=== PATIENT | male | born 1985 | race African-American/Black ===

== ENCOUNTER → 2020-08-15 08:34 | Outpatient (BNVA) | payer SELFPAY | PROVIDERS: Visit Provider Internal Medicine ==

== ENCOUNTER 2025-01-03 13:56 | Outpatient (AMB) | payer OTHER, SELFPAY ==
--- NOTE | 2025-01-03 13:59 | MHC.OFFVIS ---
Intake Visit Reasons: vasectomy consult Intake Note: Patient is present for VASECTOMY CONSULT Urology Medication:NONE Antibiotic Allergy:NONE Blood Thinner:NONE Otolaryngology Rep Required: No Allergies No Known Allergies (No Known Allergies*) Allergy (Verified 01/03/25 14:01) Medication List - Last Reconciled 01/03/25 by LAURA Lorenzana blood-glucose sensor (Dexcom G7 Sensor device) As directed diazepam (Valium) 2 mg PO DAILY olmesartan 20 mg PO DAILY rosuvastatin 10 mg PO DAILY tirzepatide (Mounjaro) 2.5 mg subcut QWEEK tramadol 50 mg PO Q8H PRN 3 days HPI Comments Details: Haim is a 39 year old male patient of Dr. Maxwell. He presents to the office today for - vasectomy evaluation Vasectomy evaluation The patient presents for vasectomy consultation.? He is currently single however in a stable relationship He has fathered 2 children, with 2 partners The youngest child is 3 years old His partner is aware and permissive for a vasectomy Current form of control is hormones Current employment is patient elderly caregiver The vasectomy may be complicated due to a history of no complicating issues. Patient education has been provided via AUA video, via printed information, risks of failure, recovery time, bruising and potential pain syndrome have been stressed Discussion today focused on the presence of vasectomy and the risks, benefits and alternatives that are available. Vasectomy as intended as a permanent form of control. Printed information and literature was provided to the patient. Overall there is a one in 2500 failure rate. This can occur at any time after vasectomy. Risks were discussed highlighting hematoma, spermatocele, epididymal congestion, development of sperm antibodies, and development of chronic pain estimated between 1-5%. The procedure was reviewed in detail. Anatomical diagrams of the male genitalia were used to explain the location of the vas deferens. The vas deferens will be transected, the proximal end will be cauterized, a metal clip would be applied to separate the 2 vas deferens ends. It was explained the procedure will be done in the office and takes approximately 10-15 minutes. Less common problems that arise with vasectomy include hematoma, bleeding, allergic reaction to anesthetic, epididymal infection, epididymal congestion, scrotal discomfort, spermatic leak, spermatic granuloma and the possibility of antisperm antibodies. He understands these risks and wishes to proceed. Consent was signed at the office today. He also understands that it takes 12 weeks for sperm to fully clear the system. He will need to provide a semen sample at 12 weeks and if this is not clear a 2nd sample at 16 weeks. Medical clearance to stop using protection will only be provided if he satisfies published criteria for sperm clearance. Review of Systems Const All systems reviewed & are unremarkable except as noted in HPI and below Physical Exam Const General: cooperative, comfortable, no acute distress, well developed, alert and awake Orientation/consciousness: patient oriented x3 HEENT Head: Yes normal to inspection, Yes normocephalic and Yes atraumatic Ears: hearing grossly normal bilaterally Eyes General: appearance normal, both eyes and all related structures Neck Neck: Yes normal visual inspection and Yes trachea midline Chest Chest palpation & inspection: normal inspection of the chest Resp Effort & Inspection: normal respiratory effort and able to speak in complete sentences Cardio Rate: regular rate GI Inspection: Yes normal to inspection General: Yes no CVA tenderness Back/Spine/Pelvis Back: no CVA tenderness Skin General skin exam: no rashes or lesions noted Neuro General: patient oriented x3 Extrem General: Yes normal to inspection Psych Appearance: grossly normal and well kempt Mental Status: mental status grossly normal Speech and movement: Normal speech and movement present and Clear speech present Affect: normal affect Attitude: cooperative Thought process: Normal thought process present Thought content: Normal thought content present Insight: Fair insight present (Psych) Judgement: Fair judgement present (Psych) Assessment & Plan Assessment & Plan (1) Vasectomy evaluation: Code(s): Z30.09 - Encounter for other general counseling and advice on contraception Category: Medical (2) Anxiety about health: Code(s): R45.89 - Other symptoms and signs involving emotional state Category: Medical Plan Vasectomy was discussed in detail; risks and benefits. Consent was obtained We discussed semen analysis in office verses fellows kit All questions were answered Prescriptions provided; we discussed importance of bringing medications to office day of procedure. Will schedule for vasectomy Follow-up per doctor's orders; or sooner with any issues, concerns, and or questions. Medications: New tramadol Bringing medication to office day of procedure 50 mg PO Q8H PRN 9 tabs 0RF pain 3 days N43.3 - Hydrocele, unspecified diazepam (Valium) Bringing medication to office day of procedure 2 mg PO DAILY 2 tabs 0RF anxiety R45.89 - Other symptoms and signs involving emotional state Patient Instructions: The patient had an opportunity to ask questions regarding the treatment plan. All questions were answered. Physical exam, labs, and imaging were discussed and reviewed in detail. As well as risks, benefits, and discussion of treatment choices. No major barriers to understanding were identified. The patient expressed understanding and agreement with the above treatment plan. The patient was made aware they should contact our office by phone for worsening of their current condition, the appearance of new symptoms, or with any questions or concerns. Compliance is encouraged with any medications and follow up testing that is ordered. It is a privilege to be allowed the opportunity to participate in? your urological care.? Again, if you have any questions or concerns If you have any questions or concerns please do not hesitate to contact me. The office is [phone]. This note is constructed using voice recognition software. While every effort has been made to ensure accuracy transcription typist errors may have been included. Yours sincerely, LAURA Lorenzana Coding Level of Care Code New Pt Level 4 (59450) Diagnoses Vasectomy evaluation Z30.09 Anxiety about health R45.89
--- OUTSIDE RECORDS SUMMARY | 2025-01-03 15:44 | XMS_ITS | Clinical Summary ---
Author Organization [facility] Address [address] [id number] Care Team Providers Care Clinical Data Management Director Name Role Phone Sean Juares MD Primary Care Provider Unavailab le Allergies No known active allergies Medications Medication Sig Dispensed Refills Start Date End Date Status Continuous Blood Gluc Potato Loader (FreeStyle Christopher 14 Day [place]) KEVIN 1 Device by Does not apply route every 14 (fourteen) days. 2 each 2 04/01/2023 Active Continuous Blood Gluc Sensor (FreeStyle Christopher 2 Sensor) MISC 1 Device by Does not apply route every 14 (fourteen) days. 6 each 3 04/04/2023 Active Continuous Glucose Potato Loader (FreeStyle Christopher 3 [place]) DEVIIndications:Inadequ ately controlled diabetes mellitus (HCC) 1 Device by Does not apply route every 14 (fourteen) days. 6 each 1 10/08/2023 Active Insulin Pen Needle (Pen [place]) 32G X 6 MM MISC 1 Pen Needle by Does not apply route once a week. 30 each 0 11/24/2023 Active EC-Naproxen 500 MG EC tablet TAKE 1 TABLET BY MOUTH TWO TIMES A DAY FOR 14 DAYS 0 11/09/2023 Active rosuvastatin (CRESTOR) tablet 10 mgIndications:Pre-diabe jonathan,Hypertension, unspecified type,Family history of hyperlipidemia Take 1 tablet (10 mg total) by mouth daily. 90 tablet 0 11/26/2023 Active Continuous Glucose Sensor (FreeStyle Christopher 3 Sensor) MISCIndications:Type 2 diabetes mellitus with hyperglycemia, without long-term current use of insulin (HCC) 1 Device by Does not apply route every 14 (fourteen) days. 6 each 5 12/23/2023 Active Semaglutide, 1 MG/DOSE, 4 MG/3ML SOPN Inject 0.75 mL (1 mg total) under the skin once a week. 3 mL 1 02/05/2024 Active olmesartan-hydrochlorot hiazide (BENICAR HCT) 40-12.5 MG per tablet Take 1 tablet by mouth daily. 30 tablet 1 02/05/2024 Active Active Problems Problem Noted Date Diagnosed Date Mild intermittent asthma 10/10/2021 Class 1 obesity 10/10/2021 Type 2 diabetes mellitus without complication Primary hypertension 06/26/2021 Pre-diabetes 06/26/2021 Mixed hyperlipidemia 06/26/2021 Immunizations Name Administration Dates Next Due Covid-19 (Moderna 12+) 100mc g/0.5mL dosage 03/22/2021,02/22/2021 DTaP 09/14/1997, 8,1986,09/03,1986 HIB, Unspecified formulation 04/06/1988 Hepatitis B, Unspecified formulation 09/06/1999, 08/01/1998,06/29/1998 IPV 04/06/1988, 7,1986,07/04 Influenza Quad (Fluarix/Fluzone/FluLaval) 0.5mL (SD-IIV4) 04/01/2023 Influenza Quad (Flumist) 0.2 mL 2-49 Yrs (LAIV4) 04/03/2009 Influenza Trivalent (Fluarix/FluLaval/Afluria/Fluzone) 0.5mL (6mon &>) 02/05/2024 Influenza Trivalent (Fluzone /Afluria) 5.0mL Multi-dose Vial 02/07/2014 MMR 01/07/1996,04/06/1988 Pneumococcal Polysaccharide PPSV23 05/26/2001 Td (Adult), Unspecified formulation 04/06/2005,0 11/05/1992 Tdap 08/17/2015 Varicella 08/05/2018,04/03/2009 Family History Medical History Relation Name Comments No Sig Med Hx Daughter Cherie Diabetes Father Hyperlipidemia Father Hypertension Father Spondylolisthesis Father Stroke Father No Sig Med Hx Maternal Grandfather Kidney disease Maternal Grandmother No Sig Med Hx Mother No Sig Med Hx Paternal Grandfather Diabetes Paternal Grandmother Hypertension Paternal Grandmother Mental illness Sister 1 Stephanie Mental illness Sister 2 Justice Mental illness Sister 3 Carla No Sig Med Hx Son Yaw Relation Name Status Comments Daughter Cherie Alive Father Alive Maternal Grandfather Alive Maternal Grandmother Mother Alive Paternal Grandfather Alive Paternal Grandmother Alive Sister 1 Stephanie Alive Sister 2 Justice Alive Sister 3 Carla Alive Son Yaw Alive Social History Tobacco Use Types Packs/Day Years Used Date Smoking Tobacco: Never Smokeless Tobacco: Never Tobacco Cessation:Counseling Given: Not Answered Alcohol Use Standard Drinks/Week Comments Yes 0 (1 standard drink = 0.6 oz pur e alcohol) social Sex and Gender Information Value Date Recorded Sex Assigned at Male 06/06/2021 9:12 AM EST Gender Identity Male 06/06/2021 9:12 AM EST Sexual Orientation Not on file Job Start Date Occupation Industry Not on file Not on file Not on file Last Filed Vital Signs Vital Sign Reading Time Taken Comments Blood Pressure 148/98 02/05/2024 1:50 PM EDT Pulse 96 02/05/2024 1:16 PM EDT Temperature 36.5 C (97.7 F) 04/01/2023 11:41 AM EST Respiratory Rate 18 09/12/2021 9:43 AM EDT Oxygen Saturation 97% 02/05/2024 1:16 PM EDT Inhaled Oxygen Concentration - - Weight 119.7 kg (264 lb) 02/05/2024 1:16 PM EDT Height 188 cm (6' 2 ) 02/05/2024 1:16 PM EDT Body Mass Index 33.9 02/05/2024 1:16 PM EDT Plan of Treatment Health Maintenance Due Date Last Done Comments Pneumococcal Vaccine (2 of 2 - PCV) 05/26/2002 05/26/2001 Depression Screening 06/06/2022 06/06/2021 Preventative Health Evaluation 06/12/2022 06/12/2021, 06/12/2021 Hemoglobin A1C Due 08/04/2024 02/05/2024, 0 11/25/2023, 10/08/2023, Additional history exists Diabetes: Foot Exam 11/19/2024 11/20/2023 Diabetes: Microalbumin Test 11/24/2024 11/25/2023, 03/26/2023 COVID-19 Vaccine ( season) 2024 03/22/2021, 02/22/2021 Influenza Vaccine (#1) 2024 , 04/01/2023, 02/07/2014, Additional history exists BMI Counseling 02/04/2025 02/05/2024, 12/06, 11/26/2023, Additional history exists Diabetes: Eye Exam (No Retinopathy) 03/06/2025 03/06/2023 (Pt Reported - Need documentation) DTap / Tdap / Td (8 - Td or Tdap) 08/16/2025 08/17/2015, 04/06/2005, 09/14/1997, Additional history exists Hepatitis B Vaccines Completed 09/06/1999, 08/01/1998, 06/29/1998 Hepatitis C Screening Discontinued RSV Ped < 20 months Aged Out No longe r eligible based on patient's age to complete this topic Care Teams Clinical Data Management Director Relationship Specialty Start Date End Date Sean Juares MD PCP - General Family Medicine 10/08/23
--- OUTSIDE RECORDS SUMMARY | 2025-01-03 15:44 | XMS_ITS | Clinical Summary ---
Author Organization [facility] Address [address] [place] [address] Care Team Providers Care Fuller Brush Worker Name Role Phone Pcp, No Primary Care Provider Unavailabl e Social History Tobacco Use Types Packs/Day Years Used Date Smoking Tobacco: Never Assessed Sex and Gender Information Value Date Recorded Sex Assigned at Not on file Legal Sex Male 2:33 PM EST Gender Identity Not on file Sexual Orientation Not on file Plan of Treatment Health Maintenance Due Date Last Done Comments Hepatitis C Virus Screening 1986 HIV Screening 1999 DTaP/Tdap/Td Vaccines (1 - Tdap) 2005 Hepatitis B Vaccines (1 of 3 - 19+ 3-dose series) 2005 COVID-19 Vaccine ( - 2023-2 5 season) 2024 HPV Vaccines (No Doses Required) Completed Pneumococcal Vaccine: Pediat lesly (0-5 Years) and At-Risk Patients (6 to 49 Years) Aged Out No longer eligible b ased on patient's age to complete this topic Care Teams Fuller Brush Worker Relationship Specialty Start Date End Date Pcp, No [address] [place] [address] PCP - General 05/26/20
--- OUTSIDE RECORDS SUMMARY | 2025-01-03 15:44 | XMS_ITS | Clinical Summary ---
Author Organization [facility] Medici ne Address [address] [place] [address] Phone Care Team Providers Care Clay Artist Name Role Phone Vicky Maxwell Primary Care Provider [phone] Allergies No known active allergies Medications pen needle, diabetic (PEN NEEDLE MISC) Insulin Pen Needle (Pen Mora) 32G X 6 MM MISC- 1 Pen Needle by Does not apply route once a week. 024 Active blood-glucose sensor (FreeStyle Christopher 3 Plus Sensor) deviceIndicati ons:Type 2 diabetes mellitus with other specified complication, unspecified whether superintendent container terminal insulin use (CMS/[facility] V24, CMS/[facility] V28) 1 EA every 14 (fourteen) days. Box = Kit = EA 1 kit 3 025 Active olmesartan (BENICAR) 20 mg tabletIndicati ons:Type 2 diabetes mellitus with other specified complication, unspecified whether care home insulin use (CMS/[facility] V24, CMS/HCC V28) Take 1 tablet (20 mg total) by mouth 1 (one) time each day. 30 each 5 025 2025 Active rosuvastatin (CRESTOR) 10 mg tabletIndicati ons:Type 2 diabetes mellitus with other specified complication, unspecified whether care home insulin use (CMS/[facility] V24, CMS/HCC V28) Take 1 tablet (10 mg total) by mouth 1 (one) time each day. 90 tablet 025 Active Mounjaro 2.5 mg/0.5 mL injectionIndic ations:Type 2 diabetes mellitus without complication, without long-term current use of insulin ([facility] V24, [facility] V28) INJECT 2.5 MG SUBCUTANEOUSLY EVERY WEEK DIRECTED. ROTATE INJECTION SITES IN THE ABDOMEN, THIGH OR UPPER ARM 2 mL 025 Active tirzepatide (MOUNJARO) 5 mg/0.5 mL injectionIndic ations:Type 2 diabetes mellitus with other specified complication, unspecified whether care home insulin use ([facility] V24, [facility] V28) Inject 0.5 mL (5 mg total) under the skin every 7 (seven) days. 2 mL 025 Active tirzepatide (MOUNJARO) 7.5 mg/0.5 mL injectionIndic ations:Type 2 diabetes mellitus with other specified complication, unspecified whether superintendent container terminal insulin use ([facility] V24, [facility] V28) Inject 0.5 mL (7.5 mg total) under the skin every 7 (seven) days. 2 mL 025 Active tirzepatide (MOUNJARO) 10 mg/0.5 mL injectionIndic ations:Type 2 diabetes mellitus with other specified complication, unspecified whether care home insulin use ([facility] V24, [facility] V28) Inject 0.5 mL (10 mg total) under the skin every 7 (seven) days. 2 mL 025 Active blood-glucose sensor (Dexcom G7 Sensor) deviceIndicati ons:Type 2 diabetes mellitus with other specified complication, unspecified whether care home insulin use ([facility] V24, [facility] V28) 1 EA continuously. Box = Kit = EA, apply to arm every 10 days 3 each 1 025 Active blood-glucose sensor (Dexcom G7 Sensor) device 2 each every 14 (fourteen) days. Box = Kit = EA 1 kit 2 025 2024 Discontinued Active Problems Problem Noted Date Diagnosed Date Elevated serum creatinine 09/08/2024 Class 1 obesity 10/10/2021 Mild intermittent asthma 10/10/2021 Type 2 diabetes mellitus without complication Mixed hyperlipidemia 06/26/2021 Pre-diabetes 06/26/2021 Primary hypertension 06/26/2021 Encounters Date Type Department Care Team Description 12/15/2024 1:45 PM EDT Office Visit Family [facility] [place] [address] [facility] [address] [place] [phone] Vicky Maxwell PA Type 2 diabetes mellitus with other specified complication, unspecified whether superintendent container terminal insulin use ([facility] V24, [facility] V28) (Primary Dx); Attention deficit; Overeating disorder 10/13/2024 2:00 PM EDT Office Visit Family [facility] [place] [address] [facility] [address] [place] [address] Vicky Maxwell PA Type 2 diabetes mellitus with other specified complication, unspecified whether superintendent container terminal insulin use ([facility] V24, [facility] V28) (Primary Dx); Encounter for male control from Last 3 Months Immunizations Immunization Administration Dates Next Due DTaP (Infanrix) 6wks to less than 7yo ,04/06/1988,1986,09/03,1986 Hep B, Unspecified 09/06/1999,08/01/1998, 999 HiB 04/06/1988 IPV Inactivated polio (Ipol) 6wks and older 04/06/1988,1986,1986,07/04 Influenza Quadrivalent, 0.5m l, preservative free (Fluarix; FluLaval; Fluzone) ages 6mo and older (Afluria) 3yo and older 04/01/2023 Influenza trivalent, 0.5mL, preservative free (Fluarix; FluLaval; Fluzone) ages 6mo and older (Afluria) 3 years and older 02/05/2024 Influenza trivalent, with pr eservative (Fluzone; Afluria) 6mo and older 02/05/2024,02/07/2014 Influenza, live, intranasal, quadrivalent (FluMist) 2yo to less than 50yo 04/03/2009 MMR, measles mumps and rubel la Live (Priorix; M-M-R II) 12mo and older 01/07/1996,04/06/1988 Moderna SARS-CoV-2 COVID-19, mRNA, LNP-S, preservative free 03/22/2021,02/22/2021 Novel [id number] 04/03/2009 Pneumococcal polysaccharide 23 valent (Pneumovax 23) 2yo and older 05/26/2001 Td, Unspecified 04/06/2005,11/05/1992 Tdap Tetanus diptheria acell ular pertussis (Boostrix; Adacel) 7yo and older 08/17/2015 Varicella live (Varivax) 12m o and older 08/05/2018,04/03/2009 Medical History Medical History Date Comments Asthma DX:Asthma Hypertension DX:Hypertension Diabetes mellitus (CMS/[facility] V24, CMS/[facility] V28) DX:Diabetes mellitus ([facility]) Family History Medical History Relation Name Comments No Known Problems Daughter Cherie Diabetes Father Hyperlipidemia Father Hypertension Father Spondylolisthesis Father Stroke Father No Known Problems Maternal Grandfather Kidney disease Maternal Grandmother No Known Problems Mother No Known Problems Paternal Grandfather Diabetes Paternal Grandmother Hypertension Paternal Grandmother Mental illness Sister 1 Stephnaie Mental illness Sister 2 Justice Mental illness Sister 3 Carla No Known Problems Son Yaw Relation Name Status Comments Daughter Cherie Alive Father Alive Maternal Grandfather Alive Maternal Grandmother Mother Alive Paternal Grandfather Alive Paternal Grandmother Alive Sister 1 Stephanie Alive Sister 2 Justice Alive Sister 3 Carla Alive Son Yaw Alive Social History Tobacco Use Types Packs/Day Years Used Date Smoking Tobacco: Never Smokeless Tobacco: Never Alcohol Use Standard Drinks/Week Comments Yes 0 (1 standard drink = 0.6 oz pur e alcohol) Sex and Gender Information Value Date Recorded Sex Assigned at Male 02/19/2024 1:26 PM EST Legal Sex Male 2:49 PM EST Gender Identity Male 02/19/2024 1:26 PM EST Sexual Orientation Straight 02/19/2024 1: 26 PM EST Obstetrics History Last Filed Vital Signs Vital Sign Reading Time Taken Comments Blood Pressure 140/82 12/15/2024 1:41 PM EDT Pulse 97 12/15/2024 1:36 PM EDT Temperature 36.9 C (98.4 F) 12/15/2024 1:36 PM EDT Respiratory Rate 18 06/11/2024 9:45 AM EST Oxygen Saturation 97% 12/15/2024 1:36 PM EDT Inhaled Oxygen Concentration - - Weight 121 kg (267 lb) 12/15/2024 1:36 PM EDT Height 188 cm (6' 2 ) 12/15/2024 1:36 PM EDT Body Mass Index 34.28 12/15/2024 1:36 PM EDT Plan of Treatment Upcoming Encounters Date Type Department Care Team (Late st Contact Info) Description 03/16/2025 10:30 AM EST Office Visit Family Medicine [place] [address] [facility] [address] [place], [place] [phone] Vicky Maxwell PA [address] [facility] [address] [facility] [place], [place] [id number] Health Maintenance Due Date Last Done Comments Pneumococcal Vaccine: Pediatrics (0 to 5 Years) and At-Risk Patients (6 to 49 Years) (2 of 2 - PCV) 05/26/2002 05/26/2001 Hepatitis C Screening 03/06/2022 Social Influencers of Health Screening 03/06/2022 Diabetes: Annual Retina Eye Exam 03/06/2024 03/06/2023 Depression Screening 04/07/2024 Diabetes: Annual Foot Exam 11/19/2024 11/20/2023 Diabetes: Annual Urine Albumin-Creatinine Ratio (uACR) 11/24/2024 11/25/2023, 11/25/2023 COVID-19 Vaccine ( season) 2024 03/22/2021, 02/22/2021 Influenza Vaccine (#1) 2024 , 02/05/2024, 04/01/2023, Additional history exists Diabetes: Blood Sugar Control Test (HGBA1C) 06/14/2025 12/15/2024, 09/08/2024, 06/10/2024, Additional history exists DTaP,Tdap,and Td Vaccines (9 - Td or Tdap) 08/16/2025 08/17/2015, 04/06/2005, 09/14/1997, Additional history exists Diabetes: Annual GFR (Glomerular Filtration Rate) 12/15/2025 12/15/2024, 10/13/2024, 09/08/2024, Additional history exists Hypertension/CHF/CAD Annual BMP Blood Test 12/15/2025 12/15/2024, 10/13/2024, 09/08/2024, Additional history exists Cholesterol Screening (Lipid Panel) 06/10/2029 06/10/2024, 02/05/2024, 02/05/2024, Additional history exists RSV Immunization Adult Patients (1 - 1-dose 75+ series) 2061 HIB Vaccines Completed 04/06/1988 IPV Vaccines Completed 04/06/1988, 11/07, 1986, Additional history exists MMR Vaccines Completed 01/07/1996, 04/06/1988 Hepatitis B Vaccines Completed 09/06/1999, 08/01/1998, 06/29/1998 Varicella Vaccines Aged Out 08/05/2018, 04/03/2009 No longer eligible based on patient's age to complete this topic HIV Screening Completed 11/25/2023 HPV Vaccines Aged Out No longer eligi ble based on patient's age to complete this topic Hepatitis A Vaccines Aged Out No long er eligible based on patient's age to complete this topic Meningococcal ACWY Vaccine Aged Out N o longer eligible based on patient's age to complete this topic Meningococcal B Vaccine Aged Out No l onger eligible based on patient's age to complete this topic RSV Immunization Patients Under 20 months Aged Out No longer eligible based on patient's age to complete this topic Procedures Procedure Name Priority Date/Time Associated Diagnosis Comments POC HEMOGLOBIN A1C Routine 12/15/2024 2: 26 PM EDT Type 2 diabetes mellitus with other specified complication, unspecified whether superintendent container terminal insulin use ([facility] V24, [facility] V28) VITAMIN D 25 HYDROXY Routine 12/15/2024 9:23 AM EDT Diabetes mellitus associated with hormonal etiology ([facility]/HCC V24, CMS/[facility] V28) Hypouricemia Vitamin B12 deficiency anemia Avitaminosis D VITAMIN B12 Routine 12/15/2024 9:23 AM EDT Diabetes mellitus associated with hormonal etiology ([facility] V24, CMS/[facility] V28) Hypouricemia Vitamin B12 deficiency anemia Avitaminosis D COMPREHENSIVE METABOLIC PANEL Routine 12/15/2024 9:23 AM EDT Diabetes mellitus associated with hormonal etiology ([facility] V24, [facility] V28) Hypouricemia Vitamin B12 deficiency anemia Avitaminosis D FRUCTOSAMINE Routine 12/15/2024 9:23 AM EDT Diabetes mellitus associated with hormonal etiology ([facility] V24, [facility] V28) Hypouricemia Vitamin B12 deficiency anemia Avitaminosis D VITAMIN D 25 HYDROXY Routine 10/13/2024 1:37 PM EDT Vitamin D deficiency VITAMIN B12 Routine 10/13/2024 1:37 PM EDT Anemia due to vitamin B12 deficiency, unspecified B12 deficiency type COMPREHENSIVE METABOLIC PANEL Routine 10/13/2024 1:37 PM EDT Elevated serum creatinine FRUCTOSAMINE Routine 10/13/2024 1:37 PM EDT Type 2 diabetes mellitus with other specified complication, unspecified whether superintendent container terminal insulin use ([facility] V24, [facility] V28) LIPID PANEL Routine 06/10/2024 8:19 AM EST Type 2 diabetes mellitus without complication, without long-term current use of insulin ([facility] V24, [facility] V28) HIV SCREENING Routine 11/25/2023 URINE ALBUMIN CREATININE RATIO Routine 11/25/2023 DIABETES FOOT EXAM Routine 11/20/2023 DIABETES EYE EXAM Routine 03/06/2023 from Last 3 Months or Most Recently Relevant to Health Maintenance Results * (ABNORMAL) POC Hemoglobin A1C manually resulted (12/15/2024 2:26 PM EDT) Hemoglobin A1C POC 8.2(A) 4.3 - 5.7 % Blood Capillary blood specimen / Unknown 12/15/2024 2:26 PM EDT us Vicky IRENE POINT OF CARE TEST ENTER/EDIT ORDERABLES Final Result * (ABNORMAL) Fructosamine (12/15/2024 9:23 AM EDT) Only the most recent of2 resultswithin the time period is included. Fructosamine 382(H) 151 - 300 umol /L 12/20/2024 9:48 AM EDT [facility] Comment: Test performed at [facility], [address] , [place] [address] Makenzie Castrejon MD, PhD - Hospice Social Worker Blood Venous blood specimen / Unknown Venipuncture / Unknown 12/15/2024 9:23 AM EDT 12/15/2024 9:23 AM EDT Vicky IRENE LAB BLOOD ORDERABLES Final Res ult Performing Organization Address City/[facility]/ZIP Co de Phone Number [facility] [address] [place] [address] * (ABNORMAL) Vitamin D 25 hydroxy (12/15/2024 9:23 AM EDT) Only the most recent of2 resultswithin the time period is included. Pathologist [facility] Vit D, 25-Hydroxy 14.1(L) 30.0 - 100.0 ng/mL LAB CHEMISTRY METHOD 12/15/2024 2:57 PM EDT [facility] Blood Venous blood specimen / Unknown Venipuncture / Unknown 12/15/2024 9:23 AM EDT 12/15/2024 9:23 AM EDT Narrative [facility] - 12/15/2024 2:57 PM EDT Vitamin D Reference Range ng/ml Deficiency <10 Insufficiency 10-30 Sufficiency 30-100 Toxicity >100 us Vicky IRENE LAB BLOOD ORDERABLES Final Res ult [facility] [address] [place] [id number], [place] [phone] * Vitamin B12 (12/15/2024 9:23 AM EDT) Only the most recent of2 resultswithin the time period is included. Pathologist [facility] Vitamin B-12 440 180 - 914 pcg/mL LAB CHEMISTRY METHOD 12/15/2024 2:57 PM EDT [facility] Blood Venous blood specimen / Unknown Venipuncture / Unknown 12/15/2024 9:23 AM EDT 12/15/2024 9:23 AM EDT Vicky IRENE LAB BLOOD ORDERABLES Final Res ult [facility] [address] [place] [address], [place] [phone] * (ABNORMAL) Comprehensive metabolic panel (12/15/2024 9:23 AM EDT) Only the most recent of2 resultswithin the time period is included. [facility] Sodium 140 135 - 145 mmol/L LAB CHEMISTRY METHOD 12/15/2024 2:35 PM EDT [facility] Potassium 4.2 3.5 - 5.1 mmol/L LAB CHEMISTRY METHOD 12/15/2024 2:35 PM EDT [facility] Chloride 103 98 - 107 mmol/L LAB CHEMISTRY METHOD 12/15/2024 2:35 PM EDT [facility] CO2 29 24 - 32 mmol/L LAB CHEMISTRY METHOD 12/15/2024 2:35 PM EDT [facility] Anion Gap 8 5 - 14 LAB CHEMISTRY METHOD 12/15/2024 2:35 PM EDT [facility] Glucose 150(H) 70 - 99 mg/dL LAB CHEMISTRY METHOD 12/15/2024 2:35 PM EDT [facility] BUN 14 9 - 20 mg/dL LAB CHEMISTRY METHOD 12/15/2024 2:35 PM EDT [facility] Creatinine 1.20 0.70 - 1.30 mg/dL LAB CHEMISTRY METHOD 12/15/2024 2:35 PM EDT [facility] eGFR 79 >=60 mL/min/1. 73m2 LAB CHEMISTRY METHOD 12/15/2024 2:35 PM EDT [facility] Comment:Calculation based on the Chronic Kidney Disease Epidemiology Collaboration (CKD-EPI) equation refit without adjustment for race. BUN/Creatinine Ratio 11.7(L) 12.0 - 20.0 LAB CHEMISTRY METHOD 12/15/2024 2:35 PM EDT [facility] Calcium 9.6 8.4 - 10.2 mg/dL LAB CHEMISTRY METHOD 12/15/2024 2:35 PM EDT [facility] AST (SGOT) 65(H) 5 - 40 unit/L LAB CHEMISTRY METHOD 12/15/2024 2:35 PM EDT [facility] ALT (SGPT) 129(H) 7 - 52 unit/L LAB CHEMISTRY METHOD 12/15/2024 2:35 PM EDT [facility] Alkaline Phosphatase 71 34 - 104 unit/L LAB CHEMISTRY METHOD 12/15/2024 2:35 PM EDT [facility] Total Protein 7.5 6.4 - 8.5 g/dL LAB CHEMISTRY METHOD 12/15/2024 2:35 PM EDT [facility] Albumin 4.5 3.5 - 5.0 g/dL LAB CHEMISTRY METHOD 12/15/2024 2:35 PM EDT [facility] Total Bilirubin 0.7 0.3 - 1.0 mg/dL LAB CHEMISTRY METHOD 12/15/2024 2:35 PM EDT [facility] Blood Venous blood specimen / Unknown Venipuncture / Unknown 12/15/2024 9:23 AM EDT 12/15/2024 9:23 AM EDT Vicky IRENE LAB BLOOD ORDERABLES Final Res ult [facility] [address] [place] [address], * (ABNORMAL) Lipid panel (06/10/2024 8:19 AM EST) Pathologist [facility] Cholesterol 182 0 - 200 mg/dL LAB CHEMISTRY METHOD 06/10/2024 11:59 AM EST [facility] Triglycerides 167(H) <150 mg/dL LAB CHEMISTRY METHOD 06/10/2024 11:59 AM EST [facility] HDL 33 32 - 70 mg/dL LAB CHEMISTRY METHOD 06/10/2024 11:59 AM EST [facility] LDL Calculated 116 50 - 130 mg/dL LAB CHEMISTRY METHOD 06/10/2024 11:59 AM EST [facility] VLDL Cholesterol Didier 33.4 mg/dL LAB CHEMISTRY METHOD 06/10/2024 11:59 AM EST [facility] Comment:No established refer ence range. Blood Venous blood specimen / Unknown Venipuncture / Unknown 06/10/2024 8:19 AM EST 06/10/2024 8:19 AM EST Sean Juares MD LAB BLOOD ORDERABLES Final Resul t [facility] [address] [place] [address], [place] [phone] * Urine Albumin Creatinine Ratio (11/25/2023) Pathologist [facility] Urine Albumin Creatinine Ratio abstracted us Historical Provider HEALTH MAINTENANCE Final Result * HIV Screening (11/25/2023) Pathologist [facility] HIV Screening abstracted us Historical Provider HEALTH MAINTENANCE Final Result * Diabetes Foot Exam (11/20/2023) Pathologist [facility] Diabetes: Annual Foot Exam abstracted Historical Provider HEALTH MAINTENANCE Final Result * Diabetes Eye Exam (03/06/2023) Diabetes: Annual Retina Eye Exam abstracted Historical Provider HEALTH MAINTENANCE Final Result from Last 3 Months or Most Recently Relevant to Health Maintenance Insurance [place] [employer] Care Teams Clay Artist Relationship Specialty Start Date End Date Vicky Maxwell PA [address] [facility] [address] [facility] [place] [address] PCP - General Primary Care 12/15/24
--- OUTSIDE RECORDS SUMMARY | 2025-01-03 15:44 | XMS_ITS ---
Author Name [facility] Organization Unknown Results Test Name/Text Value Interpretation Date Range Source Fructosamine SerPl-sCnc 452.0 umol /L Above high normal 10/18/2024 151 - 300 [facility] N Vit B12 SerPl-mCnc 537.0 pcg/mL 10/13/2024 180 - 9 14 [facility]SFRAN 25(OH)D3 SerPl-mCnc 22.7 ng/mL Below low normal 10/13/2024 3 0 - 100 [facility] ALT SerPl-cCnc 159.0 unit/L Above high normal 10/13/2024 7 - 52 [facility] Bilirub SerPl-mCnc 1.0 mg/dL 10/13/2024 0.3 - 1 [facility] BUN SerPl-mCnc 13.0 mg/dL 10/13/2024 9 - 20 CT_ [facility] CO2 SerPl-sCnc 25.0 mmol/L 10/13/2024 24 - 32 CT _[facility]SFRAN Prot SerPl-mCnc 7.7 g/dL 10/13/2024 6.4 - 8.5 CT_ [facility] Calcium SerPl-mCnc 9.9 mg/dL 10/13/2024 8.4 - 10.2 [facility] eGFRcr SerPlBld CKD-EPI 2020 79.0 mL/min/1.73m2 10/13/2024 - [facility] Chloride SerPl-sCnc 105.0 mmol/L 10/13/2024 98 - 1 07 [facility] BUN/Creat SerPl 10.8 Below low normal 10/13/2024 12 - 2 0 [facility] Sodium SerPl-sCnc 140.0 mmol/L 10/13/2024 135 - 14 5 [facility] Glucose SerPl-mCnc 137.0 mg/dL Above high normal 10/13/2024 70 - 99 [facility] Creat SerPl-mCnc 1.2 mg/dL 10/13/2024 0.7 - 1.3 CT _THSFRAN Potassium SerPl-sCnc 4.3 mmol/L 10/13/2024 3.5 - 5.1 [facility] Albumin SerPl-mCnc 4.7 g/dL 10/13/2024 3.5 - 5 [facility] ALP SerPl-cCnc 60.0 unit/L 10/13/2024 34 - 104 CT _[facility]SFRAN AST SerPl-cCnc 74.0 unit/L Above high normal 10/13/2024 5 - 40 [facility]AN Anion Gap SerPl Calc-sCnc 10.0 10/13/2024 5 - 14 [facility] Est. average glucose Bld gHb Est-mCnc 157.0 mg/dL 09/08/2024 [facility] HbA1c MFr Bld 7.1 % Above high normal 09/08/2024 - 5.7 [facility] Potassium SerPl-sCnc 4.3 mmol/L 09/08/2024 3.5 - 5.1 [facility] BUN SerPl-mCnc 16.0 mg/dL 09/08/2024 9 - 20 CT_ [facility] Creat SerPl-mCnc 1.4 mg/dL Above high normal 09/08/2024 0.7 - 1.3 [facility] Prot SerPl-mCnc 7.6 g/dL 09/08/2024 6.4 - 8.5 CT_ [facility] CO2 SerPl-sCnc 27.0 mmol/L 09/08/2024 24 - 32 CT _[facility]SFRAN AST SerPl-cCnc 75.0 unit/L Above high normal 09/08/2024 5 - 40 [facility] Albumin SerPl-mCnc 4.8 g/dL 09/08/2024 3.5 - 5 [facility] Sodium SerPl-sCnc 140.0 mmol/L 09/08/2024 135 - 14 5 [facility] Bilirub SerPl-mCnc 0.7 mg/dL 09/08/2024 0.3 - 1 [facility] ALP SerPl-cCnc 54.0 unit/L 09/08/2024 34 - 104 CT _[facility]SFR[facility] BUN/Creat SerPl 11.4 Below low normal 09/08/2024 12 - 2 0 [facility] eGFRcr SerPlBld CKD-EPI 2020 66.0 mL/min/1.73m2 09/08/2024 - [facility] Glucose SerPl-mCnc 119.0 mg/dL Above high normal 09/08/2024 70 - 99 [facility] Anion Gap SerPl Calc-sCnc 10.0 09/08/2024 5 - 14 [facility] ALT SerPl-cCnc 146.0 unit/L Above high normal 09/08/2024 7 - 52 [facility] Chloride SerPl-sCnc 103.0 mmol/L 09/08/2024 98 - 1 07 [facility] Calcium SerPl-mCnc 10.1 mg/dL 09/08/2024 8.4 - 10. 2 [facility] HbA1c MFr Bld 7.6 % Above high normal 06/10/2024 - 5.7 [facility] Est. average glucose Bld gHb Est-mCnc 171.0 mg/dL Normal 06/10/2024 [facility] HDLc SerPl-mCnc 33.0 mg/dL Normal 06/10/2024 32 - 70 CT _[facility] LDLc SerPl Calc-mCnc 116.0 mg/dL Normal 06/10/2024 50 - 130 [facility] Trigl SerPl-mCnc 167.0 mg/dL Above high normal 06/10/2024 - 150 [facility] Cholest SerPl-mCnc 182.0 mg/dL Normal 06/10/2024 0 - 200 [facility] VLDLc SerPl Calc-mCnc 33.4 mg/dL Normal 06/10/2024 [facility] AST SerPl-cCnc 50.0 unit/L Above high normal 06/10/2024 5 - 40 [facility] Potassium SerPl-sCnc 3.9 mmol/L Normal 06/10/2024 3.5 - 5.1 [facility] ALP SerPl-cCnc 59.0 unit/L Normal 06/10/2024 34 - 104 CT _[facility]SFRAN Glucose SerPl-mCnc 103.0 mg/dL Above high normal 06/10/2024 70 - 99 [facility] Sodium SerPl-sCnc 138.0 mmol/L Normal 06/10/2024 135 - 14 5 [facility] Calcium SerPl-mCnc 10.0 mg/dL Normal 06/10/2024 8.4 - 10. 2 [facility] ALT SerPl-cCnc 106.0 unit/L Above high normal 06/10/2024 7 - 52 [facility] CO2 SerPl-sCnc 28.0 mmol/L Normal 06/10/2024 24 - 32 CT _[facility] Chloride SerPl-sCnc 101.0 mmol/L Normal 06/10/2024 98 - 1 07 [facility] Creat SerPl-mCnc 1.3 mg/dL Normal 06/10/2024 0.7 - 1.3 CT _[facility]SFRAN Albumin SerPl-mCnc 4.9 g/dL Normal 06/10/2024 3.5 - 5 [facility] eGFRcr SerPlBld CKD-EPI 2020 72.0 mL/min/1.73m2 Normal 06/10/2024 - [facility] BUN SerPl-mCnc 12.0 mg/dL Normal 06/10/2024 9 - 20 [facility]_ [facility] Anion Gap SerPl-sCnc 9.0 Normal 06/10/2024 5 - 14 [facility] Bilirub SerPl-mCnc 1.0 mg/dL Normal 06/10/2024 0.3 - 1 [facility] BUN/Creat SerPl 9.2 Below low normal 06/10/2024 12 - 2 0 [facility] Prot SerPl-mCnc 7.6 g/dL Normal 06/10/2024 6.4 - 8.5 CT_ [facility] CHOLEST SERPL-MCNC 146.0 mg/dL Normal 02/05/2024 0 - 200 [facility] HDLC SERPL-MCNC 38.0 mg/dL Normal 02/05/2024 32 - 70 [facility] LDLc SerPl Calc-mCnc 81.0 mg/dL Normal 02/05/2024 50 - 130 [facility] TRIGL SERPL-MCNC 136.0 mg/dL Normal 02/05/2024 - 150 [facility] Hgb A1c MFr Bld HPLC 7.1 % Above high normal 02/06/2024 - 5.7 [facility] PROT SERPL MCNC 7.3 g/dL Normal 02/05/2024 6.4 - 8.5 [facility] BILIRUB SERPL MCNC 1.3 mg/dL Above high normal 02/05/2024 0. 3 - 1 [facility] CALCIUM SERPL MCNC 10.0 mg/dL Normal 02/05/2024 8.4 - 10. 2 [facility] ALBUMIN SERPL BCG MCNC 4.6 g/dL Normal 02/05/2024 3.5 - 5 [facility] ALT SERPL CCNC 74.0 U/L Above high normal 02/05/2024 7 - 52 [facility] ALP SERPL-CCNC 62.0 U/L Normal 02/05/2024 34 - 104 [facility] AST SERPL CCNC 31.0 U/L Normal 02/05/2024 5 - 40 [facility] BUN SERPL MCNC 14.0 mg/dL Normal 02/05/2024 9 - 20 [facility] Glomerular filtration rate/1.73 sq M. predicted 80.0 Normal 02/05/2024 60 - [facility] CHLORIDE SERPL SCNC 102.0 mmol/L Normal 02/05/2024 98 - 1 07 [facility] ANION GAP SERPL SCNC 9.0 mmol/L Normal 02/05/2024 5 - 14 [facility] POTASSIUM SERPL SCNC 4.2 mmol/L Normal 02/05/2024 3.5 - 5.1 [facility] CREAT SERPL MCNC 1.2 mg/dL Normal 02/05/2024 0.7 - 1.3 CT [facility] HCO3 SER SCNC 30.0 mmol/L Normal 02/05/2024 24 - 32 [facility] SODIUM SERPL SCNC 141.0 mmol/L Normal 02/05/2024 135 - 14 5 [facility] GLUCOSE P FAST SERPL MCNC 91.0 mg/dL Normal 02/05/2024 70 - [facility] SPE[facility]IM[facility] SOURCE XXX RANDOM Normal 11/25/2023 [facility] MICROALBUMIN UR MCNC 1.7 mg/dL Normal 11/25/2023 [facility] HDLC SERPL-MCNC 34.0 mg/dL Normal 11/26/2023 32 - 70 [facility] TRIGL SERPL-MCNC 290.0 mg/dL Above high normal 11/26/2023 - 150 [facility] CHOLEST SERPL-MCNC 245.0 mg/dL Above high normal 11/26/2023 0 - 200 [facility] LDLc SerPl Calc-mCnc 153.0 mg/dL Above high normal 11/26/2023 50 - 130 [facility] GLUCOSE SERPL MCNC 114.0 mg/dL Normal 11/26/2023 70 - 199 [facility] CALCIUM SERPL MCNC 9.6 mg/dL Normal 11/26/2023 8.4 - 10.2 [facility] ALBUMIN SERPL BCG MCNC 4.8 g/dL Normal 11/26/2023 3.5 - 5 [facility] ALP SERPL-CCNC 60.0 U/L Normal 11/26/2023 34 - 104 [facility] ALT SER[facility] CCNC 96.0 U/L Above high normal 11/26/2023 7 - 52 [facility] BUN SERPL MCNC 18.0 mg/dL Normal 11/26/2023 9 - 20 [facility] HCO3 SER SCNC 27.0 mmol/L Normal 11/26/2023 24 - 32 [facility] ANION GAP SERPL SCNC 9.0 mmol/L Normal 11/26/2023 5 - 14 [facility] Glomerular filtration rate/1.73 sq M. predicted 73.0 Normal 11/26/2023 60 - [facility] SODIUM SERPL SCNC 141.0 mmol/L Normal 11/26/2023 135 - 14 5 [facility] POTASSIUM SERPL SCNC 4.3 mmol/L Normal 11/26/2023 3.5 - 5.1 [facility] CREAT SERPL MCNC 1.3 mg/dL Normal 11/26/2023 0.7 - 1.3 [facility] CHLORIDE SERPL SCNC 105.0 mmol/L Normal 11/26/2023 98 - 1 07 [facility] PROT SERPL MCNC 7.5 g/dL Normal 11/26/2023 6.4 - 8.5 [facility] AST SERPL CCNC 41.0 U/L Above high normal 11/26/2023 5 - 40 [facility] BILIRUB SERPL MCNC 0.7 mg/dL Normal 11/26/2023 0.3 - 1 [facility] N GONORRHOEA RRNA UR QL PCR NEGATIVE Normal 11/26/2023 - [facility] C TRACH RRNA UR QL PCR NEGATIVE Normal 11/26/2023 - [facility] Hgb A1c MFr Bld HPLC 9.1 % Above high normal 11/26/2023 - 5.7 [facility] History of Medication Use Medication Directions Dispensed Refills Start Date End Date Stat us tirzepatide 5 mg/0.2 mL syringe Inject 5 mg under the skin every 7 (seven) days. 10/13/2024 active blood-glucose sensor ([place] Amedexyle Christopher 3 Plus Sensor) device 1 EA every 14 (fourteen) days. Box = Kit = EA 09/13/2024 10/13/2024 active olmesartan (BENICAR) 20 mg tablet Take 1 tablet (20 mg total) by mouth 1 (one) time each day. 09/08/2024 active Ozempic 1 mg/dose (4 mg/3 mL) injection pen INJECT 1 MG SUBCUTANEOUSLY EVERY WEEK DIRECTED. ROTATE INJECTION SITES IN THE ABDOMEN, THIGH OR UPPER ARM 08/31/2024 active semaglutide (Ozempic) 1 mg/dose (4 mg/3 mL) injection pen Inject 1 mg under the skin every 7 (seven) days. 05/26/2024 active Semaglutide, 1 MG/DOSE, 4 MG/3ML SOPN Inject 0.75 mL (1 mg total) under the skin once a week. 02/05/2024 active Insulin Pen Needle (Pen [place]) 32G X 6 MM [facility] 1 Pen Needle by Does not apply route once a week. 11/24/2023 active Ozempic, 0.25 or 0.5 MG/DOSE, 2 MG/3ML SOPN INJECT 0.25 MG SUBCUTANEOUSLY EVERY WEEK 11/24/2023 active naproxen (EC-Naprosyn) 500 mg EC tablet TAKE 1 TABLET BY MOUTH TWO TIMES A DAY FOR 14 DAYS 11/09/2023 03/12/2024 aborted EC-Naproxen 500 MG EC tablet TAKE 1 TABLET BY MOUTH TWO TIMES A DAY FOR 14 DAYS 11/09/2023 active Continuous Glucose Sensor (FreeStyle Christopher 3 Sensor) MISC 1 Device by Does not apply route every 14 (fourteen) days. 04/01/2023 12/23/2023 active sildenafil (VIAGRA) 25 MG tablet TAKE 1 TABLET BY MOUTH EVERY DAY NEEDED FOR ERECTILE DYSFUNCTION 04/18/2022 10/08/2023 aborted Allergies Allergen Reaction Severity Comment Documented Date Source Statu s .NO KNOWN DRUG ALLERGIES ENS_POD CRCT Problems Problem Status Onset Date Problem Type Date of Resolution Source Type 2 diabetes mellitus without complication ([facility] V24, [facility] V28) active 2021-10-10 Problem[address] [facility] Class 1 obesity active 2021-10-[address] [facility] Class 1 obesity active 2021-10-[address] [facility] Primary hypertension active 2021-06-26 ProblemAct [facility] Pre-diabetes active 2021-06-26 ProblemAct [facility] SFRAN Mild intermittent asthma active 2021-10-10 ProblemAct [facility] Type 2 diabetes mellitus with other specified complication, unspecified whether chcf insulin use ([facility] V24, [facility] V28) active EncounterDiagnosisAct CT_THS SANDRA Encounter for male control active EncounterDiagnosisAct CT_TH SFRAN Mixed hyperlipidemia active 2021-06-26 ProblemAct [facility] Elevated serum creatinine active 2024-09-08 ProblemAct [facility] Inadequately controlled diabetes mellitus ([facility]) active EncounterDiagnosisAct [facility] Heel pain active 2023-11-26 ProblemAct ENS_PODC RCT Hallux valgus, left foot active 2023-11-26 ProblemAct ENS_PODCRCT Hallux valgus, right foot active 2023-11-26 ProblemAct ENS_PODCRCT Immunizations Vaccine Date Source Lot Number Status Influenza trivalent, 0.5mL, preservative free (Fluarix; FluLaval; Fluzone) ages 6mo and older (Afluria) 3 years and older 02/05/2024 CT_ANIA [id number] completed Influenza trivalent, with pr eservative (Fluzone; Afluria) 6mo and older 02/05/2024 [facility] completed Influenza Quadrivalent, 0.5m l, preservative free (Fluarix; FluLaval; Fluzone) ages 6mo and older (Afluria) 3yo and older 04/01/2023 [facility] [id number] completed Moderna SARS-CoV-2 COVID-19, mRNA, LNP-S, preservative free 03/22/2021 [facility] completed Moderna SARS-CoV-2 COVID-19, mRNA, LNP-S, preservative free 02/22/2021 [facility] completed Varicella live (Varivax) 12mo and older 08/05/2018 CT_SF RAN [id number] completed Tdap Tetanus diptheria acell ular pertussis (Boostrix; Adacel) 7yo and older 08/17/2015 [facility] [id number] completed Influenza trivalent, with pr eservative (Fluzone; Afluria) 6mo and older 02/07/2014 [facility] UNK completed Influenza, live, intranasal, quadrivalent (FluMist) 2yo to less than 50yo 04/03/2009 [facility]_TEETEE [id number] completed Novel [id number] 04/03/2009 [facility] [id number] c ompleted Varicella live (Varivax) 12mo and older 04/03/2009 CT_SF RAN [id number] completed Td, Unspecified 04/06/2005 CT_SFRMANA UNK completed Pneumococcal polysaccharide 23 valent (Pneumovax 23) 2yo and older 05/26/2001 [facility]_SFRMANA DEVANK com pleted Hep B, Unspecified 09/06/1999 CT_SFRAN DEVANK comple jensen Hep B, Unspecified 08/01/1998 CT_S[facility] UNK comple jensen Hep B, Unspecified 06/29/1998 CT_SFRMANA HARTMANK comple jensen DTaP (Infanrix) 6wks to less than 7yo 09/14/1997 CT_[facility] N UNK completed MMR, measles mumps and rubel la Live (Priorix; M-M-R II) 12mo and older 01/07/1996 [facility] UNK completed Td, Unspecified 11/05/1992 CT_[facility] UNK completed DTaP (Infanrix) 6wks to less than 7yo 04/06/1988 CT_[facility]RA N UNK completed HiB 04/06/1988 CT_[facility]AN UNK completed IPV Inactivated polio (Ipol) 6wks and older 04/06/1988 [facility] UNK completed MMR, measles mumps and rubel la Live (Priorix; M-M-R II) 12mo and older 04/06/1988 CT_[facility] UNK completed DTaP (Infanrix) 6wks to less than 7yo 1986 CT_[facility]RA N UNK completed IPV Inactivated polio (Ipol) 6wks and older 1986 CT_[facility] UNK completed DTaP (Infanrix) 6wks to less than 7yo 1986 CT[facility] N UNK completed IPV Inactivated polio (Ipol) 6wks and older 1986 CT_[facility] UNK completed DTaP (Infanrix) 6wks to less than 7yo 1986 CT[facility] N UNK completed IPV Inactivated polio (Ipol) 6wks and older 1986 CT_[facility] UNK completed Encounters Encounter Type Encounter Reason Primary Diagnosis Location Date Ambulatory Type 2 diabetes mellitus with other specified complication (CMS/HCC V24, [facility] V28) Type 2 diabetes mellitus with other specified complication (CMS/HCC V24, [facility] V28) [facility] 12/15/2024 Ambulatory Follow-up Encounter for ot her contraceptive management [facility] 10/13/2024 Ambulatory Follow-up Type 2 diabetes mellitus with other specified complication (CMS/HCC V24, [facility] V28) [facility] 09/08/2024 Ambulatory Follow-up Type 2 diabetes mellitus without complications [facility] 06/11/2024 Ambulatory Diabetes Type 2 diabetes mellitus without complications [facility] 03/12/2024 Ambulatory Type 2 diabetes mellitus with hyperglycemia Type 2 diabetes mellitus with hyperglycemia [facility] 02/05/2024 Ambulatory Type 2 diabetes mellitus without complications Type 2 diabetes mellitus without complications [facility] 02/05/2024 Ambulatory Type 2 diabetes mellitus with hyperglycemia Type 2 diabetes mellitus with hyperglycemia [facility] 11/25/2023 Ambulatory [facility] 11/12/2023 Care Team Organization Name Specialty Phone Email Start Date End Da te [facility] Vicky Maxwell [place] [facility] 12/15/2024 [facility] 02/14/2024 [facility] 02/12/2024 [facility] Primary [facility] [place] 024 [facility] 11/26/2023 [facility] 11/25 [facility] 11/26/2023 [facility] Primary [facility] 11/25/2023 10/19/2024 [facility] 11/12/2023
== END 2025-01-03 14:53 | disposition home or self-care (01) ==
LOC: HO.HUSH 13:57
PROVIDERS: PCP Physician Assistant; Visit Provider Nurse Practitioner Family
DX: Z30.09 Encounter for other general counseling and advice on contraception (principal); R45.89 Other symptoms and signs involving emotional state
CPT/HCPCS: 99204

== ENCOUNTER 2025-03-02 14:55 | Outpatient (AMB) | payer OTHER, SELFPAY ==
--- NOTE | 2025-03-02 15:09 | MHC.OFFVIS ---
Intake Visit Reasons: vasectomy(Set) Intake Note: Patient Is Present for Vasectomy Urology Med: None Antibiotic Allergy: None Blood Thinner: None Sterilization Form completed YES Public Safety Teacher Required: No Allergies No Known Allergies (No Known Allergies*) Allergy (Verified 03/02/25 15:09) HPI Comments Details: Haim is a 39 year old male patient of Dr. Maxwell. He presents to the office today for - vasectomy procedure Vasectomy procedure The patient presents for vasectomy procedure.? He is currently single however in a stable relationship He has fathered 2 children, with 2 partners The youngest child is 3 years old His partner is aware and permissive for a vasectomy Current form of control is hormones Current employment is patient career advisor [employer] Surgical History (Updated 03/02/25 @ 15:10 by ANNA Lazaro) History of vasectomy Review of Systems Const Denies chills and Denies fever(s) Card Reports no additional complaints and Denies syncope Resp Denies cough GI Denies abdominal pain and Denies heartburn Reports as per HPI and Denies change in libido Neuro Denies syncope Psych Denies change in libido Endo Denies change in libido Physical Exam Const General: cooperative, healthy appearing, comfortable and no acute distress Orientation/consciousness: patient oriented x3 HEENT Face and sinus: Yes normal facial exam Mouth: moist mucous membranes Neck Neck: Yes normal visual inspection, Yes full ROM and Yes trachea midline Chest Chest palpation & inspection: normal inspection of the chest Resp Effort & Inspection: normal respiratory effort, able to speak in complete sentences and no respiratory distress GI Inspection: Yes normal to inspection Back/Spine/Pelvis Cervical Spine: normal cervical lordosis Thoracic/Lumbar Spine: thoracic and lumbar spine normal to inspection Skin General skin exam: no rashes or lesions noted Neuro General: patient oriented x3, gait normal, tone normal and moves all extremities Extrem General: Yes normal to inspection and Yes capillary refill normal Office Procedures Vasectomy Details: Preoperative diagnosis: Anxiety regarding Postoperative diagnosis: Anxiety regarding unplanned Procedure: Bilateral vasectomy Informed consent had been completed. Preoperative and postoperative instructions were provided to the patient. The patient has transportation home identified at the completion of the procedure. Anti-anxiolytic prescription medication had been taken after consent verification and all questions answered. A limited amount of pain medication was also provided. The penis was elevated using a rubber band that was attached to the patient's shirt. Both vasa were palpated through the skin using a 3 finger technique and the penoscrotal junction was prepped with Betadine. After Betadine application the left vas was elevated using a 3 finger grasping technique. 1% lidocaine was used to create a subdermal bubble. Further anesthetic was then advanced using the 25-gauge needle along the vasa in a proximal fashion. Approximately 2 minutes were allowed to for local anesthetic uptake. Using the sharp spreading instrument the scrotal skin was spread longitudinally in line with the vasa until the subdermal layer had been divided. The vasa was then elevated from the scrotum using a ring clamp. Care was taken to elevate the superior portion of the vasa by rotating the ring clamp in a caudad direction. The battery powered cautery was used to divide the vasal sheath in a longitudinal direction on the exposed vasa and to strip the vasal sheath from the vasa. The sharp spreading instrument was used to further expose the vas within the vasal sheath. A 2nd narrower ring clamp was placed on the exposed vas and used to lift the vas from the vasal sheath. The cautery was used to divide vasal attachments and allow full exposure of a small loop of vasa. The sharp spreading instrument was then used to create a tunnel under the vasa and spread to allow the blood vessels of the vasa to retract from the vasa. A mosquito clamp was placed on the proximal portion of the vas. The battery-powered cautery was used to make a partial division in the proximal vas and then inserted in order to cauterize the proximal end of the vas. This was then cut and allowed to retract into the vasal sheath. The mosquito was then used to twist the vasa 180 degrees creating a fascial interposition as the proximal portion of the vas retracted in the vasal sheath. Using a 4-0 chromic suture the fascial interposition was sutured closed. The distal portion of the vas was then cut in order to obtain a segment of vasa. An open distal vas is preferred for minimizing postprocedure pain. The vasa were allowed to retract back into the scrotum. A small snap was then used to approximate the skin edges and allow hemostasis without placement of a suture. A similar procedure was repeated on the right side. He tolerated the procedure well. Triple antibiotic was applied. A gauze was applied. An ice pack was applied to assist with minimizing swelling. Postoperative instructions were confirmed. He understands the need to continue to use control methods. A semen sample should be brought for inspection under the microscope in 10-12 weeks. CPT 69990 Vasectomy performed by: Aris Mcdowell Informed consent given: Yes Informed consent signed: Yes Time out checklist: patient, procedure, site marked/identified, positioning of patient, supplies available, allergies confirmed and team agrees on procedure Anesthetic used: other Specimens: vas segments not sent to pathology [id number] - Vasectomy Assessment & Plan Assessment & Plan (1) Anxiety about health: Code(s): R45.89 - Other symptoms and signs involving emotional state Category: Medical Plan Twelve week follow-up check semen Patient Instructions: This note is constructed using voice recognition software. While every effort has been made to ensure accuracy chief librarian music department errors may have been included. Imaging studies, laboratory and physical exam results were discussed and reviewed in detail. No major barriers to patient understanding were identified. An opportunity to ask questions regarding the treatment plan was provided. All questions were answered. The patient expressed understanding and agreement with the above treatment plan. The patient is aware they should contact our office by phone for worsening of their current condition or the appearance of new urologic symptoms. Compliance is encouraged with any medications and followup testing that is ordered. It is a privilege to participate in the urologic care of your patient. If you have any questions or concerns regarding treatment for the above conditions, or other urologic issues, please do not hesitate to contact me. The office telephone contact is [phone]. Sincerely, Dr Aris Mcdowell MD, [facility] - Urology Compassionate Specialist Care for the Genitourinary System Coding Level of Care Code Procedure Only Diagnoses Anxiety about health R45.89 CPT Codes Office Procedure - CPT: 67281 - Vasectomy ([id number])
--- OUTSIDE RECORDS SUMMARY | 2025-03-02 17:33 | XMS_ITS | Clinical Summary ---
Author Organization [facility] Medic[facility] ne Address [address] [place] [address] Phone Care Team Providers Care Envelope Machine Adjuster Name Role Phone Vicky Maxwell Primary Care Provider [phone] Allergies No known active allergies Medications pen needle, diabetic (PEN NEEDLE MISC) Insulin Pen Needle (Pen [place]) 32G X 6 MM MISC- 1 Pen Needle by Does not apply route once a week. 024 Active blood-glucose sensor (FreeStyle Christopher 3 Plus Sensor) deviceIndicati ons:Type 2 diabetes mellitus with other specified complication, unspecified whether fci insulin use (CMS/[facility] V24, CMS/[facility] V28) 1 EA every 14 (fourteen) days. Box = Kit = EA 1 kit 3 025 Active olmesartan (BENICAR) 20 mg tabletIndicati ons:Type 2 diabetes mellitus with other specified complication, unspecified whether fci insulin use (CMS/[facility] V24, CMS/HCC V28) Take 1 tablet (20 mg total) by mouth 1 (one) time each day. 30 each 5 025 2025 Active rosuvastatin (CRESTOR) 10 mg tabletIndicati ons:Type 2 diabetes mellitus with other specified complication, unspecified whether terminal carman insulin use (CMS/[facility] V24, CMS/[facility] V28) Take 1 tablet (10 mg total) by mouth 1 (one) time each day. 90 tablet 025 Active tirzepatide (MOUNJARO) 10 mg/0.5 mL injectionIndic ations:Type 2 diabetes mellitus with other specified complication, unspecified whether fci insulin use ([facility] V24, [facility] V28) Inject 0.5 mL (10 mg total) under the skin every 7 (seven) days. 2 mL Active blood-glucose sensor (Dexcom G7 Sensor)Indicat ions:Type 2 diabetes mellitus with other specified complication, unspecified whether fci insulin use ([facility] V24, [facility] V28) USE DIRECTED TO TEST BLOOD SUGAR CONTINUOUSLY. APPLY TO ARM DIRECTED AND CHANGE EVERY 10 DAYS 3 each 1 Active Mounjaro 2.5 mg/0.5 mL injectionIndic ations:Type 2 diabetes mellitus without complication, without long-term current use of insulin ([facility] V24, [facility] V28) INJECT 2.5 MG SUBCUTANEOUSLY EVERY WEEK DIRECTED. ROTATE INJECTION SITES IN THE ABDOMEN, THIGH OR UPPER ARM 2 mL 025 2024 Discontinued(D ose adjustment) tirzepatide (MOUNJARO) 5 mg/0.5 mL injectionIndic ations:Type 2 diabetes mellitus with other specified complication, unspecified whether fci insulin use ([facility] V24, [facility] V28) Inject 0.5 mL (5 mg total) under the skin every 7 (seven) days. 2 mL 025 2024 Discontinued(D ose adjustment) tirzepatide (MOUNJARO) 7.5 mg/0.5 mL injectionIndic ations:Type 2 diabetes mellitus with other specified complication, unspecified whether terminal carman insulin use ([facility] V24, [facility] V28) Inject 0.5 mL (7.5 mg total) under the skin every 7 (seven) days. 2 mL 025 2024 Discontinued(D ose adjustment) blood-glucose sensor (Dexcom G7 Sensor) deviceIndicati ons:Type 2 diabetes mellitus with other specified complication, unspecified whether fci insulin use ([facility] V24, [facility] V28) 1 EA continuously. Box = Kit = EA, apply to arm every 10 days 3 each 1 025 11/13/ 2025 Discontinued Active Problems Problem Noted Date Diagnosed Date Elevated serum creatinine 09/08/2024 Class 1 obesity 10/10/2021 Mild intermittent asthma 10/10/2021 Type 2 diabetes mellitus without complication Overview (01/05/2025): 01/05/25 Regulatory IMO Update Mixed hyperlipidemia 06/26/2021 Pre-diabetes 06/26/2021 Primary hypertension 06/26/2021 Encounters Date Type Department Care Team Description 12/15/2024 1:45 PM EDT Office Visit Family Medicine [facility] [address] [facility] [address] [place] [phone] Vicky Maxwell PA Type 2 diabetes mellitus with other specified complication, unspecified whether fci insulin use ([facility] V24, [facility] V28) (Primary Dx); Attention deficit; Overeating disorder from Last 3 Months Immunizations Immunization Administration [...] COVID-19, mRNA, LNP-S, preservative free 03/22/2021,02/22/2021 Novel [id number] 04/03/2009 Pneumococcal polysaccharide 23 valent (Pneumovax 23) 2yo and older 05/26/2001 Td, Unspecified 04/06/2005,11/05/1992 Tdap Tetanus diptheria acell ular pertussis (Boostrix; Adacel) 7yo and older 08/17/2015 Varicella live (Varivax) 12m o and older 08/05/2018,04/03/2009 Medical History Medical History Date Comments Asthma DX:Asthma Hypertension DX:Hypertension Diabetes mellitus ([facility] V24, [facility] V28) DX:Diabetes mellitus ([facility]) Family History Medical History Relation Name Comments No Known Problems Daughter Cherie Diabetes Father Hyperlipidemia Father Hypertension Father Spondylolisthesis Father Stroke Father No Known Problems Maternal Grandfather Kidney disease Maternal Grandmother No Known Problems Mother No Known Problems Paternal Grandfather Diabetes Paternal Grandmother Hypertension Paternal Grandmother Mental illness Sister 1 Stephanie Mental illness Sister 2 Justice Mental illness Sister 3 Dianaiya No Known Problems Son Yaw Relation Name Status Comments Daughter Cherie Alive Father Alive Maternal Grandfather Alive Maternal Grandmother Mother Alive Paternal Grandfather Alive Paternal Grandmother Alive Sister 1 Stephanie Alive Sister 2 Justice Alive Sister 3 Xiaemiliya Alive Son Yaw Alive Social History Tobacco [...] 10:30 AM EST Office Visit Family Medicine [facility] [address] [place] [phone] Vicky Maxwell PA [address] [place] [address] [facility] Family Medicine [place] [id number] Health Maintenance Due Date Last Done Comments Pneumococcal Vaccine: Pediatrics (0 to 5 Years) and At-Risk Patients (6 to 49 Years) (2 of 2 - PCV) 05/26/2002 05/26/2001 HPV Vaccines (1 - 3-dose SCDM series) 2013 Hepatitis C Screening 03/06/2022 Social Influencers of [...] complete this topic HIV Screening Completed 11/25/2023 Hepatitis A Vaccines Aged Out No long [...] mellitus with other specified complication, unspecified whether fci insulin use ([facility] V24, [facility] V28) VITAMIN D 25 HYDROXY Routine 12/15/2024 9:23 AM EDT Diabetes mellitus associated with hormonal etiology ([facility] V24, [facility] V28) Hypouricemia Vitamin B12 deficiency anemia Avitaminosis D VITAMIN B12 Routine 12/15/2024 9:23 AM EDT Diabetes mellitus associated with hormonal etiology ([facility] V24, [facility] V28) Hypouricemia Vitamin B12 deficiency anemia Avitaminosis D COMPREHENSIVE METABOLIC PANEL Routine 12/15/2024 9:23 AM EDT Diabetes mellitus associated with hormonal etiology ([facility]/HCC V24, CMS/HCC V28) Hypouricemia Vitamin B12 deficiency anemia Avitaminosis D FRUCTOSAMINE Routine 12/15/2024 9:23 AM EDT Diabetes mellitus associated with hormonal etiology (CMS/HCC V24, CMS/HCC V28) Hypouricemia Vitamin B12 deficiency anemia Avitaminosis D LIPID PANEL Routine 06/10/2024 8:19 AM EST Type 2 diabetes mellitus without complication, without long-term current use of insulin ([facility]/HCC V24, [facility]/HCC V28) HIV SCREENING Routine 11/25/2023 URINE ALBUMIN CREATININE RATIO Routine 11/25/2023 DIABETES FOOT EXAM Routine 11/20/2023 DIABETES EYE EXAM Routine 03/06/2023 from Last 3 Months or Most Recently Relevant to Health Maintenance Results * (ABNORMAL) POC Hemoglobin A1C manually resulted (12/15/2024 2:26 PM EDT) Pathologist [facility] Hemoglobin A1C POC 8.2(A) 4.3 - 5.7 % Blood Capillary blood specimen / Unknown 12/15/2024 2:26 PM EDT Vicky IRENE POINT OF CARE TEST ENTER/EDIT ORDERABLES Final Result * (ABNORMAL) Fructosamine (12/15/2024 9:23 AM EDT) Fructosamine 382(H) 151 - 300 umol /L 12/20/2024 9:48 AM EDT [facility] Comment: Test performed at [facility], [address], [place] [address] Makenzie Castrejon MD, PhD - Auditing Specialist Blood Venous blood specimen / Unknown Venipuncture / Unknown 12/15/2024 9:23 AM EDT 12/15/2024 9:23 AM EDT us Vicky IRENE LAB BLOOD ORDERABLES Final Res ult [address] [address] * (ABNORMAL) Vitamin D 25 hydroxy (12/15/2024 9:23 AM EDT) Vit D, 25-Hydroxy 14.1(L) 30.0 - 100.0 ng/mL LAB CHEMISTRY METHOD 12/15/2024 2:57 PM EDT [facility] Blood Venous blood specimen / Unknown Venipuncture / Unknown 12/15/2024 9:23 AM EDT 12/15/2024 9:23 AM EDT Narrative [facility] - 12/15/2024 2:57 PM EDT Vitamin D Reference Range ng/ml Deficiency <10 Insufficiency 10-30 Sufficiency 30-100 Toxicity >100 us Vicky IRENE LAB BLOOD ORDERABLES Final Res ult Performing Organization Address [facility] Co de Phone Number [facility] [address] [place] [address], [place] [phone] * Vitamin B12 (12/15/2024 9:23 AM EDT) [facility] Vitamin B-12 440 180 - 914 pcg/mL LAB CHEMISTRY METHOD 12/15/2024 2:57 PM EDT [facility] Blood Venous blood specimen / Unknown Venipuncture / Unknown 12/15/2024 9:23 AM EDT 12/15/2024 9:23 AM EDT us Vicky IRENE LAB BLOOD ORDERABLES Final Res ult [facility] [address] [place] [address], [place] [phone] * (ABNORMAL) Comprehensive metabolic panel (12/15/2024 9:23 AM EDT) Sodium 140 135 - 145 mmol/L LAB CHEMISTRY METHOD 12/15/2024 2:35 PM EDT [facility] Potassium 4.2 3.5 - 5.1 mmol/L LAB CHEMISTRY METHOD 12/15/2024 2:35 PM EDT [facility] Chloride 103 98 - 107 mmol/L LAB CHEMISTRY METHOD 12/15/2024 2:35 PM EDT [facility] CO2 29 24 - 32 mmol/L LAB CHEMISTRY METHOD 12/15/2024 2:35 PM EDT [facility] Anion Gap 8 5 - 14 LAB CHEMISTRY METHOD 12/15/2024 2:35 PM EDT [facility] Glucose 150(H) 70 - 99 mg/dL LAB CHEMISTRY METHOD 12/15/2024 2:35 PM EDT [facility] BUN 14 9 - 20 mg/dL LAB CHEMISTRY METHOD 12/15/2024 2:35 PM EDT [facility] Creatinine 1.20 0.70 - 1.30 mg/dL LAB CHEMISTRY METHOD 12/15/2024 2:35 PM EDT [facility] eGFR 79 >=60 mL/min/1. 73m2 LAB CHEMISTRY METHOD 12/15/2024 2:35 PM EDT [facility] Comment:Calculation based on the Chronic Kidney Disease Epidemiology Collaboration (CKD-EPI) equation refit without adjustment for race. BUN/Creatinine Ratio 11.7(L) 12.0 - 20.0 LAB CHEMISTRY METHOD 12/15/2024 2:35 PM EDT [facility] Calcium 9.6 8.4 - 10.2 mg/dL LAB CHEMISTRY METHOD 12/15/2024 2:35 PM EDT [facility] AST (SGOT) 65(H) 5 - 40 unit/L LAB CHEMISTRY METHOD 12/15/2024 2:35 PM EDT [facility] ALT (SGPT) 129(H) 7 - 52 unit/L LAB CHEMISTRY METHOD 12/15/2024 2:35 PM EDT [facility] Alkaline Phosphatase 71 34 - 104 unit/L LAB CHEMISTRY METHOD 12/15/2024 2:35 PM EDT [facility] Total Protein 7.5 6.4 - 8.5 g/dL LAB CHEMISTRY METHOD 12/15/2024 2:35 PM EDT [facility] Albumin 4.5 3.5 - 5.0 g/dL LAB CHEMISTRY METHOD 12/15/2024 2:35 PM EDT [facility] Total Bilirubin 0.7 0.3 - 1.0 mg/dL LAB CHEMISTRY METHOD 12/15/2024 2:35 PM EDT [facility] Blood Venous blood specimen / Unknown Venipuncture / Unknown 12/15/2024 9:23 AM EDT 12/15/2024 9:23 AM EDT Vicky IRENE LAB BLOOD ORDERABLES Final Res ult [facility] [address] [place] [address], [place] [phone] * (ABNORMAL) Lipid panel (06/10/2024 8:19 AM EST) Cholesterol 182 0 - 200 mg/dL LAB CHEMISTRY METHOD 06/10/2024 11:59 AM EST [facility] Triglycerides 167(H) <150 mg/dL LAB CHEMISTRY METHOD 06/10/2024 11:59 AM EST [facility] HDL 33 32 - 70 mg/dL LAB CHEMISTRY METHOD 06/10/2024 11:59 AM EST [facility] LDL Calculated 116 50 - 130 mg/dL LAB CHEMISTRY METHOD 06/10/2024 11:59 AM EST [facility] VLDL Cholesterol Didier 33.4 mg/dL LAB CHEMISTRY METHOD 06/10/2024 11:59 AM EST [facility] Comment:No established refer ence range. Blood Venous blood specimen / Unknown Venipuncture / Unknown 06/10/2024 8:19 AM EST 06/10/2024 8:19 AM EST Sean Juares MD LAB BLOOD ORDERABLES Final Resul t [facility] [address] [place] [address], [place] [phone] * Urine Albumin Creatinine Ratio (11/25/2023) [facility] Urine Albumin Creatinine Ratio abstracted Result [facility] Historical Provider HEALTH MAINTENANCE Final Result * HIV Screening (11/25/2023) [facility] HIV Screening abstracted Result [facility] Historical Provider HEALTH MAINTENANCE Final Result * Diabetes Foot Exam (11/20/2023) [facility] Diabetes: Annual Foot Exam abstracted Result [facility] Historical Provider HEALTH MAINTENANCE Final Result * Diabetes Eye Exam (03/06/2023) [facility] Diabetes: Annual Retina Eye Exam abstracted Result [facility] Historical Provider HEALTH MAINTENANCE Final Result from Last 3 Months or Most Recently Relevant to Health Maintenance Insurance [place] Member Subscriber Plan / Payer (Ef fective 2024-Present) Name:HAIM SUAZO Relation to Subscriber:Self Name:Haim Suazo Jr. Payer ID:[id number] Group ID:Not on file Type:Not on file [facility] ATTN:CLAIMS [address] [place] [address] [employer] Care Teams Envelope Machine Adjuster Relationship Specialty Start Date End Date Vicky Maxwell PA [address] [facility] [address] [facility] [place] [address] PCP - General Primary Care 12/15/24
--- OUTSIDE RECORDS SUMMARY | 2025-03-02 17:33 | XMS_ITS | Clinical Summary ---
Author Organization [facility] Address [address] [id number] Care Team Providers Care Microsoft Bi Consultant Name Role Phone Sean Juares MD Primary Care Provider Unavailab le Allergies No known active allergies Medications Medication Sig Dispensed Refills Start Date End Date Status Continuous Blood Gluc Furnace Cleaner (FreeStyle Christopher 14 Day [place]) KEVIN 1 Device by Does not apply route every 14 (fourteen) days. 2 each 2 04/01/2023 Active Continuous Blood Gluc Sensor (FreeStyle Christopher 2 Sensor) MISC 1 Device by Does not apply route every 14 (fourteen) days. 6 each 3 04/04/2023 Active Continuous Glucose Furnace Cleaner (FreeStyle Christopher 3 [place]) DEVIIndications:Inadequ ately controlled diabetes mellitus (HCC) 1 Device by Does not apply route every 14 (fourteen) days. 6 each 1 10/08/2023 Active Insulin Pen Needle (Pen [place]) 32G X 6 MM MISC 1 Pen [...] age to complete this topic Care Teams Microsoft Bi Consultant Relationship Specialty Start Date End Date Sean Juares MD PCP - General Family Medicine 10/08/23
== END 2025-03-02 16:08 | disposition home or self-care (01) ==
LOC: HO.HUSH 14:55
PROVIDERS: PCP Physician Assistant; Visit Provider Urology
DX: Z30.2 Encounter for sterilization (principal)
CPT/HCPCS: 55250

== ENCOUNTER → 2025-03-02 14:55 | Outpatient (BNVA) | payer OTHER, SELFPAY | PROVIDERS: PCP Physician Assistant; Visit Provider Urology | DX: R45.89 Other symptoms and signs involving emotional state (principal) | CPT/HCPCS: 55250 ==